=== PATIENT | male | born 1965 | race Caucasian/White ===

== ENCOUNTER → 2019-01-29 | Outpatient (CLI) | payer OTHER ==
--- NOTE | 2019-01-29 23:47 | REP ---
Clinical: Dyspnea. Technique: Axial noncontrast images from the thoracic inlet to the upper abdomen with coronal and sagittal re-formations. Findings: The bilateral lung mckinney are relatively well aerated, symmetric and clear. Few small scattered ground-glass opacities are nonspecific and likely insignificant. No focal consolidation, nodule or mass lesion. No pleural effusion. No pneumothorax. Tracheobronchial tree is patent. No obvious adenopathy. Mediastinum demonstrates normal thoracic aorta and heart/pericardium. Limited upper abdomen demonstrates normal bilateral adrenal glands. Thyroid gland is grossly normal by noncontrast evaluation. The surrounding musculoskeletal structures are intact without focal osseous abnormality. Impression: Very subtle small scattered ground-glass opacities are nonspecific and likely insignificant. No obvious nodule or consolidation. No acute process. Electronically Signed by Siddharth Joel MD 01/29/2019 11:38 P
== END ==
LOC: M RAD 08:27
PROVIDERS: ATTEND Nurse Practitioner Family
DX: R06.00 Dyspnea, unspecified (principal)